=== PATIENT | female | born 2000 ===

== ENCOUNTER 2023-05-01 19:24 | Outpatient (REF) | payer OTHER, SELFPAY ==
[2023-05-07 00:07] LABS: Age Gdln ACOG Testing Note (.); IGP, rfx Aptima HPV ASCU Note (.)
== END 2023-05-01 19:25 | disposition home or self-care (01) ==
LOC: LAB 19:24
PROVIDERS: Visit Provider Obstetrics & Gynecology
DX: Z01.419 Encounter for gynecological examination (general) (routine) without abnormal findings (principal)
CPT/HCPCS: G0145

== ENCOUNTER 2024-05-04 20:45 | Outpatient (REF) | payer OTHER, SELFPAY ==
--- OUTSIDE RECORDS SUMMARY | 2024-05-04 20:49 | XMS_ITS | CCD ---
Author Organization [facility] Care Team Providers Care Liaison Officer Name Role Phone BAHMAN KAY Attending Mayda Singh MD Primary Care Provider Medications Current Medications Medication Drug Class(es) Dates Sig (Normalized) Sig (Original) drospirenone 3 mg / ethinyl estradiol 0.03 mg oral tablet (3 sources) Progestin, Estrogen Start: 01-06-2024 End: 12-07-2024 drospirenone-ethin yl estradiol (Nadia, Ocella) 3-0.03 MG tablet Indications: Uses control TAKE 1 TABLET BY MOUTH IN THE MORNING 84 tablet 3 01/06/2024 12/07/2024 Active Vital Signs Date Time Vital Sign Value Performing Clinician Faci lity 05-04-2024 14:46-0500 Body mass index (BMI) [Ratio] 20.66 kg/m2 Bahman Rahul [employer] Work Phone: [facility] 05-04-2024 14:46-0500 Body weight 58.06 kg [employer] Work Phone: [facility] 05-04-2024 14:46-0500 Diastolic blood pressure 70 mm[Hg] Bahman Rahul DO Work Phone: [facility] 05-04-2024 14:46-0500 Systolic blood pressure 110 mm[Hg] Bahman Rahul DO Work Phone: [facility] Healthcare Encounters Encounter Date Encounter Type Care Provider Facility Start: 05-04-2024 End: 05-04-2024 Bamboo flowsheet Bahman Rahul [employer] Work Phone: [facility] Start: 05-04-2024 End: 05-04-2024 Bamboo flowsheet Bahman Rahul DO Work Phone: [facility] Start: 05-04-2024 End: 05-04-2024 Patient encounter procedure Bahman Kay DO Work Phone: [facility] Healthcare Start: 05-04-2024 End: 05-04-2024 Periodic preventive med est patient 18-39 yrs Bahman Lymano DO Work Phone: [facility] Comment on above: Well woman exam with routine gynecological exam Start: 05-01-2023 End: 05-01-2023 ambulatory BAHMAN KAY Not Available Plan of Treatment Date Care Activity Detail Author Start: 05-18-2025 End: 05-18-2025 Patient encounter procedure 05/18/2025 2:00 PM EST Office Visit [facility] [address] [place] [address] Bahman Kay, DO [address], [place] [id number] [facility] Start: 02-16-2024 Influenza vaccination Influenza Vacc ine (#1) [facility] Cytology Cervical or vaginal smear or scraping study Pap Smear Pathology and Cytology Routine Well woman exam with routine gynecological exam Ordered: 05/04/2024 [facility] Work Phone: Comment on above: Ordered: 05/04/2024 Immunizations Immunization Date Immunization Notes Care Provider Fa cili 05-12-2023 influenza virus vacc ine, unspecified formulation Bahman Kay DO Work Phone: [facility] Healthcare Payers Date Payer Category Payer Private Health Insurance [employer] [id number] 2022 Unknown [id number] 2000 Unknown [id number] Social History Date Type Detail Facility Tobacco smoking stat [facility] Tobacco smoking consumption unknown [facility] Healthcare Start: 2000 Sex assigned at Not on file [facility] Gender identity Not [facility] file [facility] History of Present illness Narrative 05-04-2024 Lucita Dimas, THERAPIST PHYS - 05/04/2024 2:00 PM EST Note Date & Type Note Facility 05-04-2024 History of Presen t illness Narrative Reason for Appointment: Patient ID: Felipe Malagon is a 24 y.o. female who presents for Gynecologic Exam Patient presents today for Annual Exam. MEDICATIONS Current Outpatient Medications Medication Instructions drospirenone-ethinyl estradiol (Nadia, Ocella) 3-0.03 MG tablet 1 tablet, Oral, Daily ALLERGIES No Known Allergies PROBLEMS Active Ambulatory Problems Diagnosis Date Noted No Active Ambulatory Problems Resolved Ambulatory Problems Diagnosis Date Noted No Resolved Ambulatory Problems No Additional Past Medical History HISTORY PAST MEDICAL HISTORY SOCIAL HISTORY No past medical history on file. Social History Tobacco Use Smoking status: Not on file Smokeless tobacco: Not on file Substance Use Topics Alcohol use: Not on file Drug use: Not on file FAMILY HISTORY Family History Problem Relation Name Age of Onset No Known Problems Mother No Known Problems Father No Known Problems Sister SURGICAL HISTORY History reviewed. No pertinent surgical history. REVIEW OF SYSTEMS Review of Systems: Review of Systems All other systems reviewed and are negative. OBJECTIVE Objective: Physical Exam Constitutional: Appearance: Normal appearance. She is well-developed. Genitourinary: Vulva normal. Breasts: Breasts are soft. Right: Normal. Left: Normal. Cardiovascular: Rate and Rhythm: Normal rate and regular rhythm. Pulmonary: Effort: Pulmonary effort is normal. Breath sounds: Normal breath sounds. Abdominal: General: Bowel sounds are normal. There is no distension. Palpations: Abdomen is soft. Tenderness: There is no abdominal tenderness. There is no guarding or rebound. Musculoskeletal: General: No swelling. Normal range of motion. Right lower leg: No edema. Left lower leg: No edema. Neurological: Mental Status: She is alert and oriented to person, place, and time. Skin: General: Skin is warm and dry. Psychiatric: Mood and Affect: Mood normal. Behavior: Behavior normal. Vitals and nursing note reviewed. Exam conducted with a fur cleaner present. Vitals: Estimated body mass index is 20.66 kg/m as calculated from the following: Height as of 05/01/23: 5' 6 . Weight as of this encounter: 128 lb. BP: 110/70 Patient's last menstrual period was 04/17/2024. ASSESSMENT & PLAN ICD-10-CM 1. Well woman exam with routine gynecological exam Z01.419 Pap Smear Annual Exam: Patient presents today for an annual exam. Patient states she is doing well and has no complaints. Pap was obtained without difficulty. Follow Up: Patient is to return in one year for annual unless needed otherwise. Documented by Lucita Dimas LPN on behalf of: Bahman Kay DO documented in this encounter [facility] Evaluation note Note Date & Type Note Facility Evaluation note Diagnosis Well woman exam with routine gynecological exam Routine gynecological examination documented in this encounter [facility] Summary Purpose Family History No Family History Records Found Advance Directives No Advanced Directives Records Found Additional Source Comments INFORMATION SOURCE (unrecogn ized section and content) DATE CREATED AUTHOR 05/03/[address] [facility] Care Teams (unrecognized sec tion and content) Liaison Officer Relationship Specialty Start Date End Date Mayda Hatfield MD [address] [place] [address] PCP - General Family Medicine 05/01/23 Liaison Officer Relationship Specialty Start Date End Date Mayda Hatfield MD [address] [place] [address] PCP - General Family Medicine 05/01/23 Reason for Visit (unrecogniz ed section and content) Reason Comments Gynecologic Exam FOR RECORDS PERTAINING TO PATIENTS WHO ARE OR HAVE BEEN ENROLLED IN A CHEMICAL DEPENDENCY/SUBSTANCEABUSE PROGRAM, SOME INFORMATION MAY BE OMITTED. This clinical summary was aggregated from multiple sources. Caution should be exercised in using it in the provision of clinical care. This summary normalizes information from multiple sources, and as a consequence, information in this document may materially change the coding, format and clinical context of patient data. In addition, data may be omitted in some cases. CLINICAL DECISIONS SHOULD BE BASED ON THE PRIMARY CLINICAL RECORDS. [facility]. provides no warranty or guarantee of the accuracy or completeness of information in this document.
== END 2024-05-04 20:46 | disposition home or self-care (01) ==
LOC: LAB 20:45
PROVIDERS: Visit Provider Obstetrics & Gynecology
DX: Z01.419 Encounter for gynecological examination (general) (routine) without abnormal findings (principal)
CPT/HCPCS: 88175